=== PATIENT | male | born 1960 | race Asian ===

== ENCOUNTER 2020-04-23 20:20 | Emergency (ER) | payer OTHER ==
[~2020-04-23] VITALS: Ht 167.6 cm; Wt 69.9 kg
[~2020-04-23 20:20] MED LIST: AMLODIPINE BESYLATE PO; ASPIRIN REGULA325 MG PO; CHOL100034 PO; ESCI10TA PO; RISP1TAB PO; TAB-A-VITE PO
[2020-04-23 20:23] VITALS: BP 163/89; TEMP 98.3
[2020-04-23 21:03] LABS: PLATELET COUNT 242 K/uL (142-355)
[2020-04-23 21:10] LABS: POTASSIUM 3.7 mmol/L (3.6-5.2)
[2020-04-23] MEDS ORDERED: AMLODIPINE BESYLATE PO (23:22)
[2020-04-23] MEDS ORDERED: ASPI-93 PO (23:23)
[2020-04-23] MEDS ORDERED: VITAMIN D1000 UNI1 PO (23:25)
[2020-04-23] MEDS ORDERED: MULTI-VITAMIN DAILY PO (23:26)
[2020-05-08] MEDS ORDERED: COATED ASPIRIN325 MG PO (10:15)
[2020-05-08] MEDS ORDERED: AMLODIPINE BESYLATE PO (10:15)
[2020-05-08] MEDS ORDERED: CHOL100034 PO (10:15)
[2020-05-08] MEDS ORDERED: RISP1TAB PO (10:16)
[2020-05-08] MEDS ORDERED: ESCI10TA PO (10:16)
[2020-05-08] MEDS ORDERED: MULTTAB52 PO (10:16)
== END 2020-04-23 22:02 | disposition still patient (30) ==
LOC: ED 20:20
PROVIDERS: Emergency Medicine Emergency Medical Services
DX: F03.91 Unspecified dementia, unspecified severity, with behavioral disturbance (principal); Z11.59 Encounter for screening for other viral diseases; Z04.6 Encounter for general psychiatric examination, requested by authority
CPT/HCPCS: 36415; 80053; 81000; 85027; 87635; 93005; 99283; 99285; U0003